=== PATIENT | male | born 1990 | race African-American/Black ===

== ENCOUNTER 2020-12-28 06:27 | Emergency (ER) ==
[2020-12-28 11:33] LABS: SARS-CoV-2 PCR by NAA DETECTED (NotDetected)
== END 2020-12-28 07:18 | disposition home or self-care (01) ==
LOC: ERS 06:27
DX: U07.1 COVID-19 (principal)
CPT/HCPCS: 99283; U0003; U0005

== ENCOUNTER 2021-10-07 06:29 | Emergency (ER) | payer SELFPAY | END 2021-10-07 07:14 | disposition home or self-care (01) | LOC: ERS 06:29 | DX: G51.0 Bell's palsy (principal) | CPT/HCPCS: 99283 ==

== ENCOUNTER 2023-03-19 06:37 | Emergency (ER) | payer SELFPAY ==
[2023-03-19 07:27] LABS: Bacteria/HPF None Seen HPF (None Seen); Bilirubin Negative (Negative); Blood, Urine Negative (Negative); CAUTI Indications for Culture Dysuria,urgency,freq; Clarity Clear (Clear); Glucose, Urine (Dipstick) 500 mg/dL (Negative); Ketone, Urine 10 mg/dL (Negative); Leukocyte Negative Leu/uL (Negative); Nitrite Negative (Negative); Protein, Urine (Dipstick) 10 mg/dL (Neg-Trace); RBC/HPF 0-3 HPF (0-3); Specific Gravity, Urine 1.025 (1.002-1.036); Squamous Epithelial None Seen HPF (0-3); Urobilinogen Normal mg/dL (Less than 2); WBC/HPF 0-3 HPF (0-3); pH, Urine 5.5 (5.0-9.0)
[2023-03-19 07:39] LABS: #Eosinphils 0.2 thou/uL (0.0-0.7); #Monocytes 0.6 thou/uL (0.11-0.59); #Neutrophils 5.2 thou/uL (1.40-6.50); %Basophils 0.4 % (0.0-1.0); %Eosinophils 2.1 % (0.0-10.0); %Lymphocytes 34.3 % (21.0-51.0); %Monocytes 6.3 % (0.0-10.0); %Neutrophils 56.5 % (42.0-75.0); Hematocrit 48.7 % (42.0-52.0); Hemoglobin 15.5 g/dL (14.0-18.0); Mean Corpuscular HGB CONC 31.8 g/dL (32.0-36.0); Mean Corpuscular Hemoglobin 26.1 pg (27.0-31.0); Mean Corpuscular Volume 81.8 fl (78.0-98.0); Mean Platelet Volume 9.9 fL (7.4-10.4); Platelet Count 357 10x3/uL (130-400); RBC Distribution Width 13.5 % (11.5-14.5); Red Blood Cell (RBC) Count 5.95 mill/uL (4.70-6.10); White Blood Cell (WBC) Count 9.3 10x3/uL (4.8-10.8)
[2023-03-19 07:53] LABS: Actual Bicarbonate (HCO3v) 23.2 mEq/L (22-28); Base Excess 0.6 mEq/L (-2.0 to +3.0); Calcium, Ionized (venous) 0.99 mmol/L (1.16-1.32); Chloride (VBG) 101 mmol/L (98-106); Hematocrit-VBG 48 % (42.0-52.0); Hemoglobin (Hb) 16.4 g/dL (13.2-17.3); Potassium (VBG) 3.99 mmol/L (3.70-5.30); Sodium 137 mmol/L (133-146)
[2023-03-19 08:01] LABS: ALT (SGPT) 41 U/L (8-55); AST (SGOT) 25 U/L (5-34); Alkaline Phosphatase 151 U/L (40-110); Anion Gap 16 mmol/L (10-20); BUN (Urea Nitrogen) 11 mg/dL (8.9-20.6); Bilirubin, Total 0.4 mg/dL (0.2-1.2); Calc. Creatinine Clearance 0 mL/min (70-130); Carbon Dioxide 25 mmol/L (22-29); Chloride 100 mmol/L (98-107); Estimated GFR 82; Glucose 262 mg/dL (70-105); Potassium 3.9 mmol/L (3.5-5.1); Sodium 137 mmol/L (136-145)
[2023-03-19 08:11] LABS: Urine Culture Reflex No No
== END 2023-03-19 09:40 | disposition home or self-care (01) ==
LOC: ERS 06:37
DX: R73.9 Hyperglycemia, unspecified (principal)
CPT/HCPCS: 36415; 36416; 80053; 81001; 82010; 82805; 85025; 99284